=== PATIENT | female | born 1955 | race American Indian/Alaskan Native ===

== ENCOUNTER 2017-08-30 15:56 | Emergency (ER) | payer OTHER ==
[2017-08-30 15:56] VITALS: BMI 24.0
[2017-08-30 16:21] VITALS: TEMP 98.6
[2017-08-30] MEDS ORDERED: Tdap Vaccine 0.5 ml Vial (10-64 yrs) IM ONE (16:32)
--- NOTE | 2017-08-30 16:33 | ED PDOC ---
HPI: General Adult Time Seen by Provider: 08/30/17 16:22 Chief Complaint (Nursing): Trauma Chief Complaint (Provider): head injury History Per: Patient Additional Complaint(s): 62-year-old female presents for evaluation of head injury. Patient was walking when a branch fell off of a tree striking her on the head. Patient sustained minor abrasion, she did not sustain loss of consciousness. Patient not sure of last tetanus. She has mild pain to affected area. PMD: Dr. Kunz Past Medical History Reviewed: Historical Data, Nursing Documentation, Vital Signs Vital Signs: Last Vital Signs Temp 98.6 F 08/30/17 16:19 Pulse 63 08/30/17 16:19 Resp 18 08/30/17 16:19 BP 168/89 H 08/30/17 16:19 Pulse Ox 100 08/30/17 16:33 - Medical History PMH: Colonic Polyps, COPD, Fractures (LEFT ANKLE), HTN - Surgical History Surgical History: Appendectomy - Family History Family History: States: No Known Family Hx - Living Arrangements Living Arrangements: With Family - Social History Current smoker - smoking cessation education provided: Yes ("sometimes") Alcohol: None Drugs: Denies - Immunization History Hx Tetanus Toxoid Vaccination: No (not sure of last tetanus) - Home Medications Home Medications: Ambulatory Orders Medication Instructions Recorded Aspirin [Aspirin Chewable] 1 tab PO DAILY 03/05/17 Ibuprofen [Motrin] 400 mg PO Q8H PRN #20 tab 03/05/17 Multivitamin [Multivitamins] 1 tab PO DAILY 03/05/17 amLODIPine [Norvasc] 1 tab PO DAILY 03/05/17 Naproxen [Naprosyn] 500 mg PO BID 07/19/17 traMADol [Ultram] 50 mg PO TID #9 tab 07/19/17 - Allergies Allergies/Adverse Reactions: Allergies Allergy/AdvReac Type Severity Reaction Status Date / Time No Known Allergies Allergy Verified 08/30/17 16:18 Review of Systems ROS Statement: Except As Marked, All Systems Reviewed And Found Negative Gastrointestinal: Negative for: Nausea, Vomiting Skin: Positive for: Other (scalp abrasion) Neurological: Positive for: Other (head injury with no LOC). Negative for: Dizziness Physical Exam - Reviewed Nursing Documentation Reviewed: Yes Vital Signs Reviewed: Yes - Physical Exam Appears: Positive for: Well, Non-toxic, No Acute Distress Head Exam: Negative for: ATRAUMATIC (Superficial abrasion noted to left parietal lobe, no active bleeding, minimal tenderness to palpation) Skin: Positive for: Normal Color. Negative for: Rash Eye Exam: Positive for: Normal appearance Neck: Positive for: Normal Cardiovascular/Chest: Positive for: Regular Rate, Rhythm Respiratory: Positive for: Normal Breath Sounds Extremity: Positive for: Normal ROM Neurologic/Psych: Positive for: Alert, Oriented - ECG O2 Sat by Pulse Oximetry: 100 Pulse Ox Interpretation: Normal Medical Decision Making Medical Decision Makin62 year old with scalp abrasion Plan: IM adacel PO tylenol Patient was advised to continue with Tylenol for pain and wound care instructions were given. Warning signs of worsening head injury were discussed in detail with patient, all questions answered. She was advised to return for any concerns or worsening symptoms, otherwise follow-up with primary doctor. Disposition - Clinical Impression Clinical Impression: Scalp abrasion, Requires a booster tetanus, Closed head injury - Patient ED Disposition Is Patient to be Admitted: No Counseled Patient/Family Regarding: Diagnosis, Need For Followup - Disposition Referrals: Gonzalez Kunz DO [Primary Care Provider] - Disposition: Routine/Home Disposition Time: 16:45 Condition: STABLE Additional Instructions: Wash wound daily with soap and water and apply Neosporin once per day. Apply ice to affected area to reduce swelling and pain. Take Tylenol every 4-6 hours as needed for pain. Follow-up with primary doctor in 2-3 days or return to ED any time if acutely worse. Instructions: Skin Abrasions, Closed Head Injury, Head Injury Observation (DC) , Diphtheria and Tetanus Toxoids, and Acellular Pertussis Vaccine Forms: [employer] (Tuvaluan)
[2017-08-30 17:27] VITALS: BP 138/82; PULSE 74; RESP 16; O2SAT 98
== END 2017-08-30 17:27 | disposition home or self-care (01) ==
LOC: H.ER 15:56
DX: S00.01XA Abrasion of scalp, initial encounter (principal); W22.8XXA Striking against or struck by other objects, initial encounter; Y92.480 Sidewalk as the place of occurrence of the external cause; I10 Essential (primary) hypertension

== ENCOUNTER 2017-12-16 12:05 | Emergency (ER) | payer MEDICAID, OTHER ==
[2017-12-16 12:05] VITALS: BMI 24.0
[2017-12-16 12:16] VITALS: PULSE 79; RESP 18; TEMP 98
[2017-12-16] MEDS ORDERED: Iohexol 240 (50 ml) PO ONE (13:15)
[2017-12-16 13:25] LABS: ALB/GLOB RATIO 1.2 (1.0-2.1); ALBUMIN 4.3 g/dL (3.5-5.0); BLOOD UREA NITROGEN 17 mg/dl (7-17); CALCIUM 9.3 mg/dL (8.4-10.2); GFR NON-AFRICAN AMERICAN 57; LIPASE 168 U/L (23-300)
[2017-12-16 13:28] LABS: ALT/SGPT 21 U/L (9-52); AST/SGOT 41 U/L (14-36); BASO % 0.5 % (0.0-2.0); EOS # 0.2 K/uL (0.0-0.7); HEMOGLOBIN 13.2 g/dL (12.0-16.0); LYMPH # 1.5 K/uL (1.0-4.3); LYMPH % 17.8 % (20.0-40.0); MEAN CELL VOLUME 93.6 fl (81.0-99.0); MEAN CORPUSCULAR HEMOGLOBIN 30.7 pg (27.0-31.0); MEAN CORPUSCULAR HGB CONC 32.7 g/dL (33.0-37.0); MONO # 0.7 K/uL (0.0-0.8); MONO % 7.9 % (0.0-10.0); NEUT # 6.2 K/uL (1.8-7.0); NEUT % 71.8 % (50.0-75.0); NRBC % 0.1 % (0.0-0.0); RBC 4.3 Mil/uL (3.80-5.20); RED CELL DISTRIBUTION WIDTH 14.7 % (11.5-14.5); WHITE BLOOD COUNT 8.6 K/uL (4.8-10.8)
[2017-12-16 13:39] LABS: SQUAMOUS EPITHIAL 1 /hpf (0-5); URINE BILIRUBIN NEGATIVE (NEGATIVE); URINE BLOOD NEGATIVE (NEGATIVE); URINE CLARITY CLEAR (Clear); URINE COLOR STRAW (YELLOW); URINE GLUCOSE (UA) NEG (Normal); URINE LEUKOCYTE ESTERASE NEG Leu/uL (Negative); URINE PROTEIN NEGATIVE (NEGATIVE); URINE UROBILINOGEN 0.2-1.0 mg/dL (0.2-1.0)
--- NOTE | 2017-12-16 13:41 | RAD ---
Date of service: 12/16/2017 HISTORY: possible admission COMPARISON: Chest radiograph dated 09/12/2014. FINDINGS: LUNGS: No active pulmonary disease. PLEURA: No significant pleural effusion identified, no pneumothorax apparent. CARDIOVASCULAR: Aortic atherosclerotic calcifications. Cardiomediastinal silhouette stably enlarged. OSSEOUS STRUCTURES: Changed. VISUALIZED UPPER ABDOMEN: Normal. OTHER FINDINGS: None. IMPRESSION: No active disease.
--- NOTE | 2017-12-16 14:02 | ED PDOC ---
HPI: Abdomen Time Seen by Provider: 12/16/17 12:23 Chief Complaint (Nursing): Abdominal Pain Chief Complaint (Provider): Abdominal Pain History Per: Patient History/Exam Limitations: no limitations Onset/Duration Of Symptoms: Days (x 1) Current Symptoms Are (Timing): Still Present Location Of Pain/Discomfort: Diffuse Quality Of Discomfort: "Pain" Associated Symptoms: denies: Loss Of Appetite Additional Complaint(s): 62 year old female with a history of hypertension presents to the ED with severe diffuse abdominal pain since she woke up this morning. Patient denies a history of similar symptoms. Otherwise is providing limited information and is crying in the position. When asked about surgical history she states that she had colon surgery but does not remember why. Does not remember the names of her medicine though she does comply. Denies sick contacts, recent travel, change in appetite and recent weight loss or gain. PMD: Dr Kunz Past Medical History Reviewed: Historical Data, Nursing Documentation, Vital Signs Vital Signs: Last Vital Signs Temp 98 F 12/16/17 12:15 Pulse 79 12/16/17 12:15 Resp 18 12/16/17 12:15 BP 127/79 12/16/17 12:15 Pulse Ox 96 12/16/17 12:15 - Medical History PMH: Colonic Polyps, COPD, Fractures (LEFT ANKLE), HTN Denies: Chronic Kidney Disease - Surgical History Surgical History: Appendectomy - Family History Family History: States: Unknown Family Hx - Immunization History Hx Tetanus Toxoid Vaccination: No (not sure of last tetanus) - Home Medications Home Medications: Ambulatory Orders Medication Instructions Recorded Ibuprofen [Motrin] 400 mg PO Q8H PRN #20 tab 03/05/17 RX: Aspirin [Aspirin Chewable] 1 tab PO DAILY 03/05/17 RX: Multivitamin [Multivitamins] 1 tab PO DAILY 03/05/17 RX: amLODIPine [Norvasc] 1 tab PO DAILY 03/05/17 RX: Naproxen [Naprosyn] 500 mg PO BID 07/19/17 RX: traMADol [Ultram] 50 mg PO TID #9 tab 07/19/17 RX: raNITIdine [Zantac Soln 5ml] 150 mg PO BID #60 ml 12/16/17 - Allergies Allergies/Adverse Reactions: Allergies Allergy/AdvReac Type Severity Reaction Status Date / Time No Known Allergies Allergy Verified 12/16/17 12:14 Review of Systems ROS Statement: Except As Marked, All Systems Reviewed And Found Negative Constitutional: Negative for: Weight loss (or gain) Gastrointestinal: Positive for: Abdominal Pain (severe abdominal pain) Physical Exam - Reviewed Nursing Documentation Reviewed: Yes Vital Signs Reviewed: Yes - Physical Exam Appears: Positive for: Non-toxic, No Acute Distress (patient is crying) Head Exam: Positive for: ATRAUMATIC, NORMAL INSPECTION, NORMOCEPHALIC Skin: Positive for: Normal Color, Warm, Dry Eye Exam: Positive for: EOMI, Normal appearance, PERRL Neck: Positive for: Normal, Painless ROM, Supple Cardiovascular/Chest: Positive for: Regular Rate, Rhythm. Negative for: Murmur Respiratory: Positive for: Normal Breath Sounds. Negative for: Wheezing, Respiratory Distress Gastrointestinal/Abdominal: Positive for: Normal Exam, Soft, Guarding (patient is guarding and pushing hand away upon examination) Extremity: Positive for: Normal ROM. Negative for: Tenderness, Pedal Edema, Swelling Neurologic/Psych: Positive for: Alert, Oriented. Negative for: Motor/Sensory Deficits - Laboratory Results Result Diagrams: 12/16/17 12:55 12/16/17 12:55 - ECG O2 Sat by Pulse Oximetry: 96 (RA) Medical Decision Making Medical Decision Makin:44 MDM: workup for sudden onset of abdominal pain Ranitidine and morphine for pain, IV fluids, CT abdomen & pelvis with PO and IV contrasts Labs sent Reassess CXR NAD. 14:08 CT FINDINGS: LOWER THORAX: Unremarkable. LIVER: Unremarkable. No gross lesion or ductal dilatation. GALLBLADDER AND BILE DUCTS: Unremarkable. PANCREAS: Pancreatic divisum. No gross lesion or ductal dilatation. SPLEEN: Unremarkable. ADRENALS: Unremarkable. No mass. KIDNEYS AND URETERS: Unremarkable. No hydronephrosis. No solid mass. VASCULATURE: Unremarkable. No aortic aneurysm. No aortic atherosclerotic calcification or mural plaque present. BOWEL: Prior sigmoid surgery. Thickening of the gastric antrum. No obstruction. No gross mural thickening. APPENDIX: No findings to suggest acute appendicitis. PERITONEUM: Unremarkable. No free fluid. No free air. LYMPH NODES: Unremarkable. No enlarged lymph nodes. BLADDER: Unremarkable. REPRODUCTIVE: Unremarkable. BONES: No acute fracture. OTHER FINDINGS: None. IMPRESSION: Thickening of the gastric antrum may be related to underdistention versus gastritis. Clinical correlation is recommended. Prior colon surgery. No obstruction. Incidental note is made of pancreatic divisum. Scribe Attestation: Documented by Margaret Cotto acting as a scribe for Violette Stephens MD Provider Scribe Attestation: All medical record entries made by the Scribe were at my direction and personally dictated by me. I have reviewed the chart and agree that the record accurately reflects my personal performance of the history, physical exam, medi zakia decision making, and the department course for this patient. I have also personally directed, reviewed, and agree with the discharge instructions and disposition. [address] WNL. Pt with improved pain and tolerating PO. Pt given Rx for Ranitidine. Pt to follow up in PMD office in one week. Diet and return parameters discussed. Disposition - Clinical Impression Clinical Impression: Gastritis, Abdominal pain - Disposition Disposition Time: 17:26 Condition: IMPROVED Additional Instructions: Take medications as prescribed. Avoid alcohol, fatty foots, spicy foods, and acidic foods/drinks. 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 Prescriptions: RX: raNITIdine [Zantac Soln 5ml] 150 mg PO BID #60 ml Instructions: Viral Gastroenteritis, Adult (DC) Forms: [employer] (Syriac) Print Language: SETSWANA
[2017-12-16] MEDS ORDERED: Sodium Chloride 0.9% 50 ML IV ONE (14:55)
[2017-12-16] MEDS ORDERED: Iohexol 300 100 ML IJ ONE (14:55)
--- NOTE | 2017-12-16 16:11 | CT ---
Date of service: 12/16/2017 PROCEDURE: CT Abdomen and Pelvis with contrast HISTORY: diffuse abd pain, h/o colon surgery COMPARISON: None. TECHNIQUE: Contrast dose: 90 mL Omnipaque 300 Radiation dose: Total exam DLP = 261.59 mGy-cm. This CT exam was performed using one or more of the following dose reduction techniques: Automated exposure control, adjustment of the mA and/or kV according to patient size, and/or use of iterative reconstruction technique. FINDINGS: LOWER THORAX: Unremarkable. LIVER: Unremarkable. No gross lesion or ductal dilatation. GALLBLADDER AND BILE DUCTS: Unremarkable. PANCREAS: Pancreatic divisum. No gross lesion or ductal dilatation. SPLEEN: Unremarkable. ADRENALS: Unremarkable. No mass. KIDNEYS AND URETERS: Unremarkable. No hydronephrosis. No solid mass. VASCULATURE: Unremarkable. No aortic aneurysm. No aortic atherosclerotic calcification or mural plaque present. BOWEL: Prior sigmoid surgery. Thickening of the gastric antrum. No obstruction. No gross mural thickening. APPENDIX: No findings to suggest acute appendicitis. PERITONEUM: Unremarkable. No free fluid. No free air. LYMPH NODES: Unremarkable. No enlarged lymph nodes. BLADDER: Unremarkable. REPRODUCTIVE: Unremarkable. BONES: No acute fracture. OTHER FINDINGS: None. IMPRESSION: Thickening of the gastric antrum may be related to underdistention versus gastritis. Clinical correlation is recommended. Prior colon surgery. No obstruction. Incidental note is made of pancreatic divisum.
[2017-12-16 17:49] VITALS: BP 129/72; O2SAT 98
== END 2017-12-16 17:57 | disposition home or self-care (01) ==
LOC: H.ER 12:05
DX: R10.9 Unspecified abdominal pain (principal); K29.70 Gastritis, unspecified, without bleeding; I10 Essential (primary) hypertension
CPT/HCPCS: 71045; 74177; 80053; 81003; 83690; 85025; 96374; 96375; 99284; J2270; Q9966; Q9967

== ENCOUNTER 2018-04-22 09:41 | Emergency (ER) | payer OTHER ==
[2018-04-22 10:09] VITALS: BMI 25.7
[2018-04-22 10:13] VITALS: O2SAT 99
--- NOTE | 2018-04-22 11:52 | ED PDOC ---
Lower Extremity Pain/Injury Time Seen by Provider: 04/22/18 10:54 Chief Complaint (Nursing): Lower Extremity Problem/Injury Chief Complaint (Provider): L leg pain History Per: Patient History/Exam Limitations: no limitations Additional Complaint(s): Pt reports L lower back pain radiating down L leg since 9 PM yesterday, took Ibuprofen without relief, pain worse with movement. Denies trauma, paresthesias, weakness, difficulty ambulating, incontinence, swelling. Past Medical History Reviewed: Nursing Documentation, Vital Signs Vital Signs: Last Vital Signs Temp 98.6 F 04/22/18 10:09 Pulse 101 H 04/22/18 10:09 Resp 18 04/22/18 10:09 BP Pulse Ox 99 04/22/18 10:09 - Medical History PMH: Colonic Polyps, COPD, Fractures (LEFT ANKLE), HTN Denies: Chronic Kidney Disease - Surgical History Surgical History: Appendectomy - Family History Family History: States: Unknown Family Hx - Social History Current smoker - smoking cessation education provided: No Alcohol: None - Immunization History Hx Tetanus Toxoid Vaccination: No - Home Medications Home Medications: Ambulatory Orders Medication Instructions Recorded Aspirin [Aspirin Chewable] 1 tab PO DAILY 03/05/17 Ibuprofen [Motrin] 400 mg PO Q8H PRN #20 tab 03/05/17 Multivitamin [Multivitamins] 1 tab PO DAILY 03/05/17 amLODIPine [Norvasc] 1 tab PO DAILY 03/05/17 Naproxen [Naprosyn] 500 mg PO BID 07/19/17 traMADol [Ultram] 50 mg PO TID #9 tab 07/19/17 raNITIdine [Zantac Soln 5ml] 150 mg PO BID #60 ml 12/16/17 Naproxen [Naprosyn] 500 mg PO BID PRN #15 tablet 04/22/18 - Allergies Allergies/Adverse Reactions: Allergies Allergy/AdvReac Type Severity Reaction Status Date / Time No Known Allergies Allergy Verified 12/16/17 12:14 Review of Systems Constitutional: Negative for: Fever Musculoskeletal: Positive for: Back Pain, Leg Pain Skin: Negative for: Rash, Lesions Neurological: Negative for: Weakness, Numbness Physical Exam - Reviewed Nursing Documentation Reviewed: Yes Vital Signs Reviewed: Yes - Physical Exam Appears: Positive for: Uncomfortable Head Exam: Positive for: ATRAUMATIC, NORMAL INSPECTION Skin: Positive for: Normal Color, Warm, Dry Eye Exam: Positive for: Normal appearance, EOMI, PERRL Cardiovascular/Chest: Positive for: Regular Rate, Rhythm Respiratory: Positive for: Normal Breath Sounds Back: Positive for: Normal Inspection, Other (L lower back tenderness). Negative for: L CVA Tenderness, R CVA Tenderness, Vertebral Tenderness Extremity: Positive for: Normal ROM, Tenderness (L hip --> L foot), Capillary Refill (<2 sec). Negative for: Pedal Edema, Deformity, Swelling Neurological/Psych: Positive for: Awake, Alert, Oriented. Negative for: Motor/Sensory Deficits - ECG O2 Sat by Pulse Oximetry: 99 - Other Rad XR L-spine X-Ray: Interpreted by Ca X-Ray Interpretation: Negative. Medical Decision Making Medical Decision Makin yo female with L back/leg pain. - L-spine XR - Doppler ultrasound - Toradol - Flexeril Accession No. : [id number] Patient Name / ID : MADELEINE STEINER D / [id number] Exam Date : 04/22/2018 12:36:44 ( Approved ) Study Comment : Sex / Age : F / 62Y Creator : Edward Olivas MD Dictator : Ewdard Olivas MD Stogy Roller : Interactive Media Project Manager : Edward Olivas MD Approver2 : Report Date : 04/22/2018 18:12:46 My Comment : Date of service: 04/22/2018 PROCEDURE: Radiographs of the Lumbar Spine. HISTORY: Left lower back pain COMPARISON: No prior. FINDINGS: BONES: There is mild anterior stature loss of the T12 segment which may be d evelopmental. DISC SPACES: Disc space heights are relatively maintained. Facet joints are slightly overgrown at the L5-S1 through the L3-L4 levels in decreasing order of severity. OTHER FINDINGS: None. IMPRESSION: No acute fractures. Minor degenerative facet arthropathy Accession No. : [id number] Patient Name / ID : MADELEINE STEINER D / [id number] Exam Date : 04/22/2018 12:11:08 ( Approved ) Study Comment : Sex / Age : F / 62Y Creator : Edward Olivas MD Dictator : Edward Olivas MD Stogy Roller : Interactive Media Project Manager : Edward Olivas MD Approver2 : Report Date : 04/22/2018 15:08:31 My Comment : Date of service: 04/22/2018 HISTORY: LLE pain. PRIORS: Comparison made with prior left lower extremity DVT study 06/18/2015. FINDINGS: 2-D, color and duplex Doppler analysis of the lower extremity venous circulation using routine protocol from the femoral veins through the popliteal veins. Venous compressibility: Normal. Flow and augmentation patterns: Normal. Visualized veins upper third of calf: Normal. Rosenthal cyst: None. IMPRESSION: No sonographic or Doppler evidence for DVT in left lower extremity. 15:00 Pt feels better, ambulating without difficulty. Disposition - Clinical Impression Clinical Impression: Leg pain, left - Disposition Referrals: Gonzalez Kunz DO [Non-Staff] - Disposition: Routine/Home Disposition Time: 15:17 Condition: IMPROVED Prescriptions: Naproxen [Naprosyn] 500 mg PO BID PRN #15 tablet PRN Reason: Pain, Moderate (4-7) Instructions: Muscle and Bone Pain (DC) Forms: [employer] (Yi)
--- NOTE | 2018-04-22 15:12 | US ---
Date of service: 04/22/2018 HISTORY: LLE pain. PRIORS: Comparison made with prior left lower extremity DVT study 06/18/2015. FINDINGS: 2-D, color and duplex Doppler analysis of the lower extremity venous circulation using routine protocol from the femoral veins through the popliteal veins. Venous compressibility: Normal. Flow and augmentation patterns: Normal. Visualized veins upper third of calf: Normal. Rosenthal cyst: None. IMPRESSION: No sonographic or Doppler evidence for DVT in left lower extremity.
--- NOTE | 2018-04-22 18:16 | RAD ---
Date of service: 04/22/2018 PROCEDURE: Radiographs of the Lumbar Spine. HISTORY: Left lower back pain COMPARISON: No prior. FINDINGS: BONES: There is mild anterior stature loss of the T12 segment which may be developmental. DISC SPACES: Disc space heights are relatively maintained. Facet joints are slightly overgrown at the L5-S1 through the L3-L4 levels in decreasing order of severity. OTHER FINDINGS: None. IMPRESSION: No acute fractures. Minor degenerative facet arthropathy
[2018-04-22 18:17] VITALS: TEMP 98
[2018-04-22 18:19] VITALS: BP 129/70; PULSE 77; RESP 18
== END 2018-04-22 18:17 | disposition home or self-care (01) ==
LOC: H.ER 09:41
DX: M79.605 Pain in left leg (principal); I10 Essential (primary) hypertension; J44.9 Chronic obstructive pulmonary disease, unspecified
CPT/HCPCS: 72114; 93971; 96372; 99283; J1885